=== PATIENT | male | born 1970 | race Caucasian/White ===

== ENCOUNTER 2024-04-18 14:45 | Emergency (ER) | payer OTHER ==
[~2024-04-18] VITALS: Ht 170.1 cm; Wt 70.3 kg
[2024-04-18] MEDS ORDERED: DULOXETINE HCL20 MG PO (15:07)
[2024-04-18] MEDS ORDERED: PREGABALIN50 MG PO (15:08)
[2024-04-18] MEDS ORDERED: COMBIVENT RESPIM4 GM INH (15:08)
[2024-04-18] MEDS ORDERED: ASPIRIN ADULT L81 M1 PO (15:08)
[2024-04-18] MEDS ORDERED: SPIRIVA RESPIMAT4 G1 INH (15:09)
[2024-04-18] MEDS ORDERED: BUPRENORPHINE-1 EAC2 SL (15:09)
[2024-04-18] MEDS ORDERED: FLUTICASONE-SA1 EAC3 INH (15:09)
[2024-04-18] MEDS ORDERED: methylPREDNISolone sod succ 125 MG VIAL IM ONE (15:15)
[2024-04-18 15:36] LABS: BASO # 0.1 10*3/uL (0.0-0.1); BASO % 0.7 % (0.0-1.0); EOS # 0.2 10*3/uL (0.0-0.4); EOS % 2.1 % (1.0-4.0); HEMATOCRIT 35.9 % (42.0-52.0); MEAN CELL VOLUME 96.8 fl (80.0-94.0); MEAN CORPUSCULAR HGB 31.8 pg (27.0-31.0); MEAN CORPUSCULAR HGB CONC 32.9 g/dl (33.0-37.0); MEAN PLATELET VOLUME 9.8 fl (9.6-12.3); MONO # 0.5 10*3/uL (0.1-1.0); MONO % 6.1 % (3.0-9.0); NEUT # 5.8 10*3/uL (2.3-7.9); PLATELET COUNT AUTOMATED 220 10*3/uL (130-400); RED BLOOD COUNT 3.71 10*6/uL (4.50-5.90); RED CELL DISTRI WIDTH 12.2 % (0-14.5); WHITE BLOOD COUNT 7.7 10*3/uL (4.8-10.8)
[2024-04-18 15:47] LABS: ACT PARTIAL THROMBO TIME 26.5 SECONDS (20.0-32.1)
[2024-04-18 15:56] LABS: BUN 14 mg/dl (9-23); CHLORIDE 108 mmol/L (98-107); POTASSIUM 4.1 mmol/L (3.4-5.1)
[2024-04-18] MEDS ORDERED: PREDNISONE50 MG PO (16:06)
== END 2024-04-18 16:20 ==
LOC: ED 14:45
PROVIDERS: Physician Assistant Medical
DX: R06.02 Shortness of breath (principal); T50.905A Adverse effect of unspecified drugs, medicaments and biological substances, initial encounter; F41.9 Anxiety disorder, unspecified; F32.A Depression, unspecified; J44.9 Chronic obstructive pulmonary disease, unspecified; Y92.009 Unspecified place in unspecified non-institutional (private) residence as the place of occurrence of the external cause